=== PATIENT | male | born 1975 | race Caucasian/White ===

== ENCOUNTER 2018-02-04 11:53 | Emergency (ER) | payer BC ==
[~2018-02-04] VITALS: Wt 158.8 kg
[~2018-02-04 11:53] MED LIST: 'PARAFON FORTE500 M1 PO; ASPIRIN325 M2 PO; CARDIZEM CD240 M1 PO; NAPROSYN500 MG PO; PRILOSEC20 M1 PO; ZOCOR20 MG PO
[2018-02-04] MEDS ORDERED: ROBAXIN500 M1 PO (13:28)
== END 2018-02-04 14:00 | disposition home or self-care (01) ==
LOC: ED 11:53
DX: S33.5XXA Sprain of ligaments of lumbar spine, initial encounter (principal); Z79.82 Long term (current) use of aspirin; Z79.899 Other long term (current) drug therapy; Z88.2 Allergy status to sulfonamides; X50.1XXA Overexertion from prolonged static or awkward postures, initial encounter; Y93.89 Activity, other specified; Y92.099 Unspecified place in other non-institutional residence as the place of occurrence of the external cause; Y99.9 Unspecified external cause status

== ENCOUNTER → 2018-07-30 | Outpatient (CLI) | payer BC ==
[~2018-07-30] MED LIST changes: +ROBAXIN500 M1 PO
[2018-07-30 07:16] LABS: HEMOGLOBIN 17.7 g/dl (14.0-18.0); MEAN CELL VOLUME 86.8 fl (80.0-94.0); MEAN CORPUSCULAR HGB 29.5 pg (27.0-31.0); MEAN PLATELET VOLUME 9.1 fl (9.6-12.3); RED BLOOD COUNT 5.99 10*6/uL (4.50-5.90); RED CELL DISTRI WIDTH 13.1 % (0-14.5); WHITE BLOOD COUNT 10.5 10*3/uL (4.8-10.8)
[2018-07-30 07:41] LABS: ALBUMIN 3.7 gm/dl (3.1-4.5); ALKALINE PHOSPHATASE 74 U/L (45-117); BUN 15 mg/dl (7-24); CHLORIDE 105 mmol/L (98-107); CHOLESTEROL 148 mg/dL (<200); CREATININE 1.22 mg/dL (0.70-1.30); HDL CHOLESTEROL 40 mg/dl (40-60); LDL CHOLESTEROL 86 mg/dL (9-159); POTASSIUM 3.7 mmol/L (3.5-5.1); SGOT/AST 23 IU/L (3-35); SGPT/ALT 64 U/L (12-78); SODIUM 140 mmol/L (136-145); TOTAL PROTEIN 7.3 gm/dL (6.4-8.2); TRIGLYCERIDES 111 mg/dl (<150); VLDL CHOLESTEROL 22 mg/dL (6-40)
[2018-07-30 10:59] LABS: VITAMIN D, 25-HYDROXY 11.1 ng/mL (30-100)
== END | disposition home or self-care (01) ==
LOC: LAB 06:52
PROVIDERS: Physician Assistant
DX: M54.5 Low back pain (principal)

== ENCOUNTER 2019-07-28 04:37 | Emergency (ER) | payer BC ==
[~2019-07-28] VITALS: Ht 185.4 cm; Wt 161.0 kg
[2019-07-28 05:17] LABS: BASO % 0.1 % (0.0-1.0); EOS # 0.1 10*3/uL (0.0-0.4); EOS % 0.8 % (1.0-4.0); HEMATOCRIT 50.4 % (42.0-52.0); HEMOGLOBIN 16.7 g/dl (14.0-18.0); LYMPH # 1.5 10*3/uL (1.3-4.4); LYMPH % 20.7 % (27.0-41.0); MEAN CELL VOLUME 88.3 fl (80.0-94.0); MEAN CORPUSCULAR HGB 29.2 pg (27.0-31.0); MEAN CORPUSCULAR HGB CONC 33.1 g/dl (33.0-37.0); MEAN PLATELET VOLUME 8.7 fl (9.6-12.3); MONO # 0.8 10*3/uL (0.1-1.0); MONO % 11.3 % (3.0-9.0); NEUT # 4.7 10*3/uL (2.3-7.9); NEUT % 66.8 % (47.0-73.0); PLATELET COUNT AUTOMATED 224 10*3/uL (130-400); RED BLOOD COUNT 5.71 10*6/uL (4.50-5.90); RED CELL DISTRI WIDTH 13.3 % (0-14.5); WHITE BLOOD COUNT 7.1 10*3/uL (4.8-10.8)
[2019-07-28] MEDS ORDERED: LOMOTIL 2.5-0.1 EACH PO (05:23)
[2019-07-28 05:30] LABS: ALBUMIN 3.5 gm/dl (3.1-4.5); ALKALINE PHOSPHATASE 70 U/L (45-117); BUN 12 mg/dl (7-24); CHLORIDE 105 mmol/L (98-107); CREATININE 1.15 mg/dL (0.70-1.30); LIPASE 44 U/L (73-393); POTASSIUM 3.4 mmol/L (3.5-5.1); SGOT/AST 17 IU/L (3-35); SGPT/ALT 40 U/L (12-78); SODIUM 137 mmol/L (136-145); TOTAL PROTEIN 6.9 gm/dL (6.4-8.2)
== END 2019-07-28 06:24 | disposition home or self-care (01) ==
LOC: ED 04:37
PROVIDERS: Emergency Medicine Emergency Medical Services
DX: A08.4 Viral intestinal infection, unspecified (principal); R19.7 Diarrhea, unspecified; I48.91 Unspecified atrial fibrillation; Z88.2 Allergy status to sulfonamides; Z79.899 Other long term (current) drug therapy; Z79.82 Long term (current) use of aspirin

== ENCOUNTER → 2020-07-10 | Outpatient (CLI) | payer BC ==
[~2020-07-10] MED LIST changes: -ASPIRIN325 M2 PO; +LOMOTIL 2.5-0.1 EACH PO; +MEDI-FIRST ASP325 MG PO; +PHARMASSURE V500 MCG PO; +VITAMIN D350 MC2 PO
== END | disposition home or self-care (01) ==
LOC: COVID19 01:36
PROVIDERS: ATTEND Physician Assistant
DX: Z20.828 Contact with and (suspected) exposure to other viral communicable diseases (principal)

== ENCOUNTER 2020-08-11 21:24 | Inpatient (IN) | payer BC ==
[2020-08-11] VITALS (8 sets, daily range): BP systolic 93–134; BP diastolic 51–103
[~2020-08-11] VITALS: Ht 185.4 cm; Wt 170.2 kg
[~2020-08-11 21:24] MED LIST changes: -PHARMASSURE V500 MCG PO; -VITAMIN D350 MC2 PO
--- NOTE | 2020-08-11 22:04 | NUR ---
PT REPORTS HE TOOK HIS EVENING MEDICATION SOF CARDIZEM, ASPIRIN 325, ZOCOR AND PRILOSEC AROUND 9PM.
[2020-08-11 22:14] LABS: BASO # 0.1 10*3/uL (0.0-0.1); BASO % 0.5 % (0.0-1.0); EOS # 0.2 10*3/uL (0.0-0.4); EOS % 1.6 % (1.0-4.0); HEMATOCRIT 50.5 % (42.0-52.0); LYMPH # 4.3 10*3/uL (1.3-4.4); LYMPH % 30.7 % (27.0-41.0); MEAN CELL VOLUME 86.8 fl (80.0-94.0); MEAN CORPUSCULAR HGB 28.4 pg (27.0-31.0); MEAN CORPUSCULAR HGB CONC 32.7 g/dl (33.0-37.0); MEAN PLATELET VOLUME 9.1 fl (9.6-12.3); MONO # 0.9 10*3/uL (0.1-1.0); MONO % 6.1 % (3.0-9.0); NEUT # 8.6 10*3/uL (2.3-7.9); NEUT % 60.7 % (47.0-73.0); PLATELET COUNT AUTOMATED 325 10*3/uL (130-400); RED BLOOD COUNT 5.82 10*6/uL (4.50-5.90); RED CELL DISTRI WIDTH 13.5 % (0-14.5); WHITE BLOOD COUNT 14.1 10*3/uL (4.8-10.8)
[2020-08-11 22:37] LABS: ALBUMIN 3.5 gm/dl (3.1-4.5); ALKALINE PHOSPHATASE 91 U/L (45-117); BUN 18 mg/dl (7-24); CHLORIDE 113 mmol/L (98-107); CREATININE 0.93 mg/dL (0.70-1.30); SGOT/AST 26 IU/L (3-35); SGPT/ALT 59 U/L (12-78); SODIUM 140 mmol/L (136-145); TOTAL PROTEIN 6.8 gm/dL (6.4-8.2)
[2020-08-11 22:40] LABS: TROPONIN I < 0.015 ng/ml (<0.045)
[2020-08-12] VITALS (13 sets, daily range): BP systolic 98–137; BP diastolic 51–82
--- NOTE | 2020-08-12 02:03 | NUR ---
PT REPORST HX OF SLEEP APNEA DOES USE CPAP WHEN POSSIBLE.PT DOES NOT HAVE HIS CPAP WITH HIM THIS EVENING.
--- NOTE | 2020-08-12 02:04 | NUR ---
PT DENIES WOUNDS AT THIS TIME.PT DOES NOT WISH TO GOWN AT THIS TIME.
--- NOTE | 2020-08-12 02:10 | NUR ---
A 45, admitted to , under the services of STEPHEN Blackburn DO with a diagnosis of AFIB WITH RVR. Chief complaint is NOTICE AROUND 8:45 PM STARTED FEELING ABNORMAL. DENIES CHEST PAIN.HAD A LITTLE SOB WITH MOVING AROUND. PER PT.HE'S HAD AFIB EPISODES OFF AND ON SINCE 2013. PATIENT STATED "IT USUALLY TAKES ABOUT 24HRS TO SWITCH BACK TO NORMAL.". Patient arrived via stretcher from ER. Monitor applied. Initial assessment completed. Vital signs taken and recorded. STEPHEN BLACKBURN DO notified of admission to the unit. Orders received. See assessment for past medical history, medications and allergies. Patient and/or family oriented to unit. [facility] visitation policy reviewed. Clothing/patient valuable form completed. IV CARDIZEM DRIP INFUSING FROM ER AT 10ML/HR, 10MG/HR #1 BAG. HR IN 80'S TO 90'S. NO C/O PAIN. O2 2L NC STARTED FOR SLEEP APNEA AND PATIENT HOB ELEVATED. PATIENT DID NOT BRING CPAP FROM HOME. FRANCIS FOLEY
--- NOTE | 2020-08-12 02:55 | NUR ---
CALLED DR. MENDEZ AND NOTIFIED HIM OF HOME MED RECONCILLED, PT. CONDITION AND THAT PATIENT HAS SLEEP APNEA AND O2 2L NC STARTED. NO NEW ORDERS RECEIVED.
[2020-08-12 04:01] LABS: BASO # 0.1 10*3/uL (0.0-0.1); BASO % 0.5 % (0.0-1.0); EOS # 0.2 10*3/uL (0.0-0.4); EOS % 1.4 % (1.0-4.0); LYMPH # 4.1 10*3/uL (1.3-4.4); LYMPH % 32.7 % (27.0-41.0); MEAN CELL VOLUME 87.2 fl (80.0-94.0); MEAN CORPUSCULAR HGB 28.6 pg (27.0-31.0); MEAN CORPUSCULAR HGB CONC 32.9 g/dl (33.0-37.0); MEAN PLATELET VOLUME 9.2 fl (9.6-12.3); MONO % 7.8 % (3.0-9.0); NEUT # 7.1 10*3/uL (2.3-7.9); NEUT % 57.4 % (47.0-73.0); PLATELET COUNT AUTOMATED 304 10*3/uL (130-400); RED BLOOD COUNT 5.62 10*6/uL (4.50-5.90); RED CELL DISTRI WIDTH 13.6 % (0-14.5); WHITE BLOOD COUNT 12.4 10*3/uL (4.8-10.8)
[2020-08-12 04:44] LABS: ALBUMIN 3.3 gm/dl (3.1-4.5); CHLORIDE 112 mmol/L (98-107); CREATININE 1.01 mg/dL (0.70-1.30); HDL CHOLESTEROL 47 mg/dl (40-60); POTASSIUM 3.8 mmol/L (3.5-5.1); SGPT/ALT 44 U/L (12-78); SODIUM 141 mmol/L (136-145); TOTAL PROTEIN 6.4 gm/dL (6.4-8.2)
[2020-08-12 05:05] LABS: ALKALINE PHOSPHATASE 80 U/L (45-117); BUN 17 mg/dl (7-24); CHOLESTEROL 127 mg/dL (<200); FREE T4 0.87 ng/dl (0.76-1.46); LDL CHOLESTEROL 57 mg/dL (9-159); SGOT/AST 18 IU/L (3-35); TRIGLYCERIDES 114 mg/dl (<150); VLDL CHOLESTEROL 23 mg/dL (6-40)
--- NOTE | 2020-08-12 07:01 | NUR ---
CALLED DR. TOYIN BANSAL FOR CONSULT MESSAGE LEFT WITH ANSWERING SERVICE.
--- NOTE | 2020-08-12 08:00 | NUR ---
PATIENT RESTING QUIETLY IN BED. NO DISTRESS NOTED. RESPIRATIONS EASY & REGULAR ON RA. DENIES ANY SOB. A-FIB PER CM. CARDIZEM GTT MAINTAINED PER POLICY. CARDIZEM INFUSING AT 5MG/HR. WILL MONITOR HR. CALL LIGHT WITHIN REACH.
[2020-08-12 08:01] LABS: VITAMIN D, 25-HYDROXY 16.4 ng/mL (30-100)
--- NOTE | 2020-08-12 13:38 | NUR ---
CARDIZEM GTT DISCONTINUED PER ORDER.
--- NOTE | 2020-08-12 15:39 | NUR ---
Legal Practice Manager in to talk to patient in his room. Patient states that he lives at Home with His and Son, Independent in his Care and Still Works. There are 13 steps in the home. Physician: Nathan Hinkle Pharmacy: [facility] Home health services: n/a Patient's level of ADLs: Independent, still works Patient has working utilities: Yes DME: N/A Follow-up physician's appointment after d/c: Per Hospitalist Nurse Director Does patient want to access PORTAL?:Declines Discharge plan is for Pt. to return home with his and Son. Follow up with [facility] Cardiology. Pt. is Independent in All ADL's and Has No Home Needs. LISHA SIFUENTES LPN
[2020-08-13] VITALS (10 sets, daily range): BP systolic 96–126; BP diastolic 52–84
--- NOTE | 2020-08-13 00:10 | NUR ---
SPOKE WITH DR. MENDEZ AND PATIENT MAY USE HIS OWN CPAP FROM HOME WITH HOME SETTINGS.
--- NOTE | 2020-08-13 01:48 | NUR ---
24 HR chart check completed.
--- NOTE | 2020-08-13 02:30 | NUR ---
SLEEPING. NO ACUTE DISTRESS NOTED.
[2020-08-13 06:41] LABS: BASO # 0.1 10*3/uL (0.0-0.1); BASO % 0.5 % (0.0-1.0); EOS # 0.2 10*3/uL (0.0-0.4); EOS % 1.5 % (1.0-4.0); LYMPH # 3.4 10*3/uL (1.3-4.4); LYMPH % 28.2 % (27.0-41.0); MEAN CELL VOLUME 87.7 fl (80.0-94.0); MEAN CORPUSCULAR HGB 28.8 pg (27.0-31.0); MEAN CORPUSCULAR HGB CONC 32.8 g/dl (33.0-37.0); MEAN PLATELET VOLUME 9.3 fl (9.6-12.3); MONO # 0.8 10*3/uL (0.1-1.0); MONO % 6.8 % (3.0-9.0); NEUT # 7.6 10*3/uL (2.3-7.9); NEUT % 62.4 % (47.0-73.0); PLATELET COUNT AUTOMATED 306 10*3/uL (130-400); RED CELL DISTRI WIDTH 13.7 % (0-14.5); WHITE BLOOD COUNT 12.2 10*3/uL (4.8-10.8)
[2020-08-13 06:50] LABS: BUN 14 mg/dl (7-24); CHLORIDE 109 mmol/L (98-107); CREATININE 1.09 mg/dL (0.70-1.30); POTASSIUM 3.7 mmol/L (3.5-5.1); SODIUM 140 mmol/L (136-145)
--- NOTE | 2020-08-13 09:30 | NUR ---
DEPOSIT CLERK CALLED REGARDING HR INCREASING TO 140-150'S. UPON ASSESSMENT, PATIENT STANDING UP BY SINK, GETTING CLEANED UP. THIS NURSE MADE PATIENT AWARE REGARDING ELEVATED HR. PATIENT SAT BACK DOWN ON HIS BED. HR NOW 115-130'S. NOTIFIED AT THIS TIME. NEW ORDERS RECEIVED.
--- NOTE | 2020-08-13 10:09 | NUR ---
CARDIZEM GTT INITIATED AT THIS TIME. 20MG IV CARDIZEM BOLUS GIVEN PER ORDER. HR 126. CARDIZEM GTT INFUSING PER ORDER. INFUSING AT 5MG/HR. WILL MONITOR HR AND BP. HR CURRENTLY 117. NO VOICED COMPLAINTS PER PATIENT. CALL LIGHT WITHIN REACH.
--- NOTE | 2020-08-13 13:59 | NUR ---
PATIENT TAKEN DOWN FOR SCHEDULED CARDIOVERSION.
--- NOTE | 2020-08-13 16:19 | NUR ---
PATIENT RESTING QUIETLY IN BED. NO DISTRESS NOTED. RESPIRATIONS EASY, REGULAR ON RA. DENIES ANY SOB. DENIES ANY PAIN/DISCOMFORT. PT REMAINS IN NSR PER CM. WILL CONTINUE TO MONITOR HR. CALL LIGHT WITHIN REACH.
--- NOTE | 2020-08-13 19:30 | NUR ---
PATIENT DENIES ANY NEEDS. ASSESSMENT COMPLETE. STATES HE FEELS GREAT AND IS READY TO GO HOME. RESPS EASY AND REGULAR. NO DISTRESS NOTED. CALL LIGHT IN REACH.
--- NOTE | 2020-08-13 21:57 | NUR ---
24 HR chart check completed.
--- NOTE | 2020-08-13 23:55 | NUR ---
ASSUMED CARE OF PATIENT. PATIENT IS SLEEPING, AWAKENS EASILY. IN BED WITH EASY AND REGULAR RESPERS ON CPAP. ASSESSMENT IS COMPLETE WITH NO C/O OR S/S OF DISTRESS NOTED AT THIS TIME. BED IS LOW, LOCKED, ALARMED, AND CALL LIGHT IS WITHIN REACH. WILL CONTINUE TO MONITOR, SEE INTERVENTIONS.
[2020-08-14] VITALS: BP 120/66
[2020-08-14 06:46] LABS: BASO % 0.4 % (0.0-1.0); EOS # 0.2 10*3/uL (0.0-0.4); EOS % 1.4 % (1.0-4.0); HEMATOCRIT 49.6 % (42.0-52.0); LYMPH # 2.7 10*3/uL (1.3-4.4); LYMPH % 25.6 % (27.0-41.0); MEAN CELL VOLUME 86.9 fl (80.0-94.0); MEAN CORPUSCULAR HGB 28.7 pg (27.0-31.0); MEAN CORPUSCULAR HGB CONC 33.1 g/dl (33.0-37.0); MEAN PLATELET VOLUME 9.4 fl (9.6-12.3); MONO # 0.7 10*3/uL (0.1-1.0); MONO % 6.3 % (3.0-9.0); NEUT % 65.9 % (47.0-73.0); PLATELET COUNT AUTOMATED 290 10*3/uL (130-400); RED BLOOD COUNT 5.71 10*6/uL (4.50-5.90); RED CELL DISTRI WIDTH 13.5 % (0-14.5); WHITE BLOOD COUNT 10.6 10*3/uL (4.8-10.8)
[2020-08-14 08:00] VITALS: BP 121/73
--- NOTE | 2020-08-14 08:25 | NUR ---
Dr. Ram in and saw pt. Discussed plan of care possibility of dc today.
[2020-08-14] MEDS ORDERED: VITAMIN D350 MC2 PO (10:38)
[2020-08-14] MEDS ORDERED: PHARMASSURE V500 MCG PO (10:38)
--- NOTE | 2020-08-14 11:00 | NUR ---
Discharge instructions reviewed with patient. Patient receptive and verbalizes understanding. Follow-up care arranged. Written instructions given to patient. IV and monitor removed. Pt left via ambulatory.
== END 2020-08-14 11:00 | disposition home or self-care (01) | DRG 309 ==
LOC: ED 21:24 → EDHOLD 08-12 00:28 → 5E 08-12 00:28
PROVIDERS: Internal Medicine; ADMIT Internal Medicine; ATTEND Internal Medicine
PROC: 5A2204Z Restoration of Cardiac Rhythm, Single (ICD-10-PCS; principal; 2020-08-13)
PROC: 5A09357 Assistance with Respiratory Ventilation, Less than 24 Consecutive Hours, Continuous Positive Airway Pressure (ICD-10-PCS; 2020-08-13)
DX: I48.91 Unspecified atrial fibrillation (principal); R65.10 Systemic inflammatory response syndrome (SIRS) of non-infectious origin without acute organ dysfunction; J90 Pleural effusion, not elsewhere classified; K21.9 Gastro-esophageal reflux disease without esophagitis; E83.41 Hypermagnesemia; E87.8 Other disorders of electrolyte and fluid balance, not elsewhere classified; R73.9 Hyperglycemia, unspecified; E78.5 Hyperlipidemia, unspecified; R73.03 Prediabetes; E53.8 Deficiency of other specified B group vitamins; Z88.2 Allergy status to sulfonamides; Z82.49 Family history of ischemic heart disease and other diseases of the circulatory system; Z83.3 Family history of diabetes mellitus; Z83.438 Family history of other disorder of lipoprotein metabolism and other lipidemia; Z82.0 Family history of epilepsy and other diseases of the nervous system

== ENCOUNTER 2021-10-02 15:34 | Emergency (ER) | payer BC ==
[~2021-10-02 15:34] MED LIST changes: +ELIQUIS5 M1 PO; +METOPROLOL SUCC50 M2 PO; +PHARMASSURE V500 MCG PO; +VITAMIN D350 MC2 PO
[2021-10-02] MEDS ORDERED: MEDROL DOSEPAK4 MG PO (18:29)
== END 2021-10-02 18:33 | disposition home or self-care (01) ==
LOC: ED 15:34
DX: M54.16 Radiculopathy, lumbar region (principal); Z88.2 Allergy status to sulfonamides; Z90.89 Acquired absence of other organs

== ENCOUNTER 2022-01-31 08:26 | Emergency (ER) | payer BC ==
[~2022-01-31 08:26] MED LIST changes: +MEDROL DOSEPAK4 MG PO
[2022-01-31] MEDS ORDERED: NAPROSYN500 MG PO (08:46)
[2022-01-31] MEDS ORDERED: TYLENOL325 M1 PO (08:46)
[2022-01-31] MEDS ORDERED: CYCLOBENZAPRINE10 MG PO (08:46)
== END 2022-01-31 09:03 | disposition home or self-care (01) ==
LOC: ED 08:26
DX: M54.50 Low back pain, unspecified (principal)

== ENCOUNTER 2022-06-20 03:47 | Emergency (ER) | payer BC ==
[~2022-06-20] VITALS: Ht 185.4 cm; Wt 172.4 kg
[~2022-06-20 03:47] MED LIST changes: +CYCLOBENZAPRINE10 MG PO; +TYLENOL325 M1 PO
[2022-06-20] MEDS ORDERED: HYDROCODONE-AC1 EAC1 PO (04:29)
[2022-06-20] MEDS ORDERED: METHOCARBAMOL500 M1 PO (04:36)
[2022-06-20] MEDS ORDERED: PREDNISONE20 M1 PO (04:36)
== END 2022-06-20 04:56 | disposition home or self-care (01) ==
LOC: ED 03:47
DX: M54.50 Low back pain, unspecified (principal); M62.830 Muscle spasm of back; G58.9 Mononeuropathy, unspecified; Z88.2 Allergy status to sulfonamides; Z90.89 Acquired absence of other organs

== ENCOUNTER 2024-02-14 16:37 | Emergency (ER) | payer BC ==
[~2024-02-14] VITALS: Ht 185.4 cm; Wt 176.9 kg
[~2024-02-14 16:37] MED LIST changes: +HYDROCODONE-AC1 EAC1 PO; +METHOCARBAMOL500 M1 PO; +PREDNISONE20 M1 PO
[2024-02-14] MEDS ORDERED: GOOD SENSE ASP325 MG PO (17:36)
[2024-02-14] MEDS ORDERED: FISH OIL 1,0001 EAC1 PO (17:38)
[2024-02-14] MEDS ORDERED: ZINC50 M4 PO (17:39)
[2024-02-14 18:06] LABS: BASO # 0.1 10*3/uL (0.0-0.1); BASO % 0.6 % (0.0-1.0); EOS # 0.2 10*3/uL (0.0-0.4); EOS % 1.1 % (1.0-4.0); HEMATOCRIT 51.5 % (42.0-52.0); LYMPH # 3.6 10*3/uL (1.3-4.4); LYMPH % 26.3 % (27.0-41.0); MEAN CELL VOLUME 88.3 fl (80.0-94.0); MEAN CORPUSCULAR HGB 29.5 pg (27.0-31.0); MEAN CORPUSCULAR HGB CONC 33.4 g/dl (33.0-37.0); MONO # 0.9 10*3/uL (0.1-1.0); MONO % 6.9 % (3.0-9.0); NEUT # 8.8 10*3/uL (2.3-7.9); NEUT % 64.7 % (47.0-73.0); PLATELET COUNT AUTOMATED 295 10*3/uL (130-400); RED BLOOD COUNT 5.83 10*6/uL (4.50-5.90); RED CELL DISTRI WIDTH 13.6 % (0-14.5); WHITE BLOOD COUNT 13.6 10*3/uL (4.8-10.8)
[2024-02-14 18:17] LABS: ACT PARTIAL THROMBO TIME 29.1 SECONDS (20.0-32.1)
[2024-02-14 18:21] LABS: BUN 12 mg/dl (9-23); CHLORIDE 106 mmol/L (98-107); POTASSIUM 3.5 mmol/L (3.4-5.1)
== END 2024-02-14 20:13 | disposition home or self-care (01) ==
LOC: ED 16:37
PROVIDERS: Nurse Practitioner
DX: R00.2 Palpitations (principal); R60.0 Localized edema; I48.91 Unspecified atrial fibrillation; Z88.2 Allergy status to sulfonamides; Z79.899 Other long term (current) drug therapy; Z79.82 Long term (current) use of aspirin; Z90.89 Acquired absence of other organs